=== PATIENT | female | born 1990 | race Caucasian/White ===

== ENCOUNTER 2017-11-12 19:42 | Emergency (ER) | payer OTHER ==
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
[2017-11-12 21:48] VITALS: BP 100/52; PULSE 71; RESP 16; TEMP 97.6
[2017-11-12 22:12] VITALS: O2SAT 99
--- NOTE | 2017-11-13 09:00 | RAD ---
PROCEDURE: Right Hand Radiographs. HISTORY: pain to hand s.p injury COMPARISON: None. FINDINGS: BONES: Bone alignment and mineralization are normal. There is no acute displaced fracture or bone destruction. JOINTS: Normal. SOFT TISSUES: Normal. OTHER FINDINGS: None. IMPRESSION: No acute fracture or dislocation.
== END 2017-11-12 21:47 | disposition home or self-care (01) ==
LOC: C.ER 19:42
DX: S60.221A Contusion of right hand, initial encounter (principal); S61.210A Laceration without foreign body of right index finger without damage to nail, initial encounter; X58.XXXA Exposure to other specified factors, initial encounter